=== PATIENT | male | born 1980 | race Caucasian/White ===

== ENCOUNTER 2017-01-24 21:17 | Emergency (ER) | payer BC ==
[~2017-01-24] VITALS: Ht 175.3 cm; Wt 106.6 kg
[2017-01-24 21:24] VITALS: BP_SYST 149
[2017-01-24] MEDS ORDERED: IBUPROFEN 800 MG TABLET PO ONE (23:00)
[2017-01-24 23:07] VITALS: BP_SYST 128
== END 2017-01-24 23:07 | disposition home or self-care (01) ==
LOC: SED 21:17
DX: S62.002A Unspecified fracture of navicular [scaphoid] bone of left wrist, initial encounter for closed fracture (principal); W01.0XXA Fall on same level from slipping, tripping and stumbling without subsequent striking against object, initial encounter; Y93.89 Activity, other specified; Y92.89 Other specified places as the place of occurrence of the external cause; Y99.8 Other external cause status
CPT/HCPCS: 99284

== ENCOUNTER 2018-05-06 09:36 | Emergency (ER) | payer BC, OTHER ==
[~2018-05-06] VITALS: Ht 175.3 cm; Wt 108.9 kg
[2018-05-06 09:36] VITALS: BP_SYST 163
[2018-05-06] MEDS ORDERED: NACL 0.9% 1,000 ML IV ONE (10:00)
[2018-05-06] MEDS ORDERED: ONDANSETRON HCL 4 MG/2 ML VIAL IVP ONE (10:00)
[2018-05-06] MEDS ORDERED: FIORCET PO ONE (10:00)
[2018-05-06] MEDS ORDERED: KETOROLAC TROMETHAMINE 30 MG VIAL IVP ONE (10:00)
[2018-05-06] MEDS ORDERED: SUMAtriptan SUCCINATE 6 MG/0.5 ML VIAL SUBCUT ONE (10:45)
[2018-05-06 11:41] VITALS: BP_SYST 142
== END 2018-05-06 11:40 | disposition home or self-care (01) ==
LOC: SED 09:36
DX: G43.909 Migraine, unspecified, not intractable, without status migrainosus (principal); R11.2 Nausea with vomiting, unspecified; H53.149 Visual discomfort, unspecified; I10 Essential (primary) hypertension
CPT/HCPCS: 96361; 96372; 96374; 96375; 99284; J1885; J2405; J3030; J7030

== ENCOUNTER 2021-06-26 10:16 | Inpatient (IN) | payer BC, SELFPAY ==
[~2021-06-26] VITALS: Ht 175.3 cm; Wt 105.7 kg
[2021-06-26 10:20] VITALS: BP_SYST 154
[2021-06-26] MEDS ORDERED: NS 500 ML IV ONE (10:45)
[2021-06-26] MEDS ORDERED: LORazepam 2 MG/ML VIAL IVP ONE (10:45)
[2021-06-26 11:00] LABS: BASOPHILS % (AUTO) 0.3 % (0.0-2.0); EOSINOPHILS # (AUTO) 0.1 K/uL (0.0-0.4); EOSINOPHILS % (AUTO) 0.9 % (0.0-4.0); HEMATOCRIT 48.8 % (36-54); HEMOGLOBIN 16.4 g/dL (14.0-18.0); LYMPHOCYTES # (AUTO) 2.1 K/uL (1.0-5.5); LYMPHOCYTES % (AUTO) 24.7 % (20.5-51.5); MEAN CORPUSCULAR HEMOGLOBIN 29 pg (27-31); MEAN CORPUSCULAR HGB CONC 34 % (32-36); MEAN CORPUSCULAR VOLUME 88 fL (79.0-98.0); MONOCYTES # (AUTO) 0.6 K/uL (0.0-1.0); MONOCYTES % (AUTO) 6.6 % (1.7-9.3); NEUTROPHILS # (AUTO) 5.9 K/uL (1.8-7.7); NEUTROPHILS % (AUTO) 67.5 % (40.0-70.0); PLATELET COUNT (AUTO) 264 K/uL (130-430); RED BLOOD CELL COUNT(AUTO) 5.58 MIL/uL (4.2-6.2); RED CELL DISTRIBUTION WIDTH 13.8 % (9.0-15.0); WHITE BLOOD COUNT (AUTO) 8.7 K/uL (4.8-10.8)
[2021-06-26 11:11] LABS: CALCIUM 8.3 mg/dL (8.4-11.0); CREATININE 0.9 mg/dL (0.55-1.30); POTASSIUM 4.2 mmol/L (3.5-5.1)
[2021-06-26 11:17] LABS: ALBUMIN 3.1 g/dL (3.4-4.8); TOTAL BILIRUBIN 0.3 mg/dL (0.0-1.0)
[2021-06-26] MEDS ORDERED: TRANEXAMIC ACID 1,000 MG/10 ML VIAL TP ONE (11:45)
[2021-06-26] MEDS ORDERED: TRAZ150T77 PO (12:26)
[2021-06-26] MEDS ORDERED: CLON2TAB11 PO (12:26)
[2021-06-26] MEDS ORDERED: ACETAMINOPHEN 500 MG TABLET PO ONE (12:45)
[2021-06-26] MEDS ORDERED: NITROGLYCERIN 1 INCH (GM) OINT. TP ONE (12:45)
[2021-06-26] MEDS ORDERED: NITROGLYCERIN 0.4 MG TAB.SUBL SL PRN (13:45)
[2021-06-26] MEDS ORDERED: ZOLPIDEM TARTRATE 5 MG TABLET PO PRN (13:45)
[2021-06-26] MEDS: NACL 0.9% 1,000 ML IV SCH (15:04)
[2021-06-26 15:21] VITALS: BP_SYST 151
[2021-06-26] MEDS: ACETAMINOPHEN 325 MG TABLET PO PRN (16:40)
[2021-06-26] MEDS: LORazepam 2 MG/ML VIAL IVP PRN (19:33)
[2021-06-26 20:00] VITALS: BP_SYST 164
[2021-06-26] MEDS: FUROSEMIDE 40 MG/4 ML VIAL IVP SCH (20:19)
[2021-06-26] MEDS: METOPROLOL TARTRATE 25 MG TABLET PO SCH (20:20)
[2021-06-26] MEDS: traZODone HCL 50 MG TABLET (DESYREL) PO SCH (20:20)
[2021-06-26] MEDS: MORPHINE 2 MG/ML INJ. SYRINGE IVP PRN (20:28)
[2021-06-27] VITALS: BP_SYST 150
[2021-06-27] MEDS: MORPHINE 2 MG/ML INJ. SYRINGE IVP PRN ×5 (00:33→22:32)
[2021-06-27] MEDS ORDERED: ONDANSETRON HCL 4 MG/2 ML VIAL IVP PRN (00:45)
[2021-06-27 03:06] LABS: BARBITURATE, URINE NEGATIVE (NEG <=200); CANNABINOID, URINE NEGATIVE (NEG <=50); COCAINE, URINE NEGATIVE (NEG <=150); METHAMPHETAMINES SCREEN,URINE NEGATIVE (NEG <=500); OPIATE, URINE NEGATIVE (NEG <=100); PHENCYCLIDINE SCREEN,URINE NEGATIVE (NEG <=25); URINE AMPHETAMINE NEGATIVE (NEG <=500); URINE METHADONE NEGATIVE (NEG <=200)
[2021-06-27 03:07] LABS: UR TRICYCLIC ANTIDEPRESSANTS NEGATIVE (NEG <=300); URINE OXYCODONE SCREEN NEGATIVE (NEG <=100); URINE PROPOXYPHENE SCREEN NEGATIVE (NEG <=300)
[2021-06-27 03:08] LABS: BENZODIAZEPINE, URINE POSITIVE (NEG <=150)
[2021-06-27] MEDS: NACL 0.9% 1,000 ML IV SCH (04:03)
[2021-06-27 07:02] LABS: BASOPHILS % (AUTO) 0.2 % (0.0-2.0); EOSINOPHILS % (AUTO) 0.1 % (0.0-4.0); HEMATOCRIT 45.8 % (36-54); HEMOGLOBIN 15.6 g/dL (14.0-18.0); LYMPHOCYTES # (AUTO) 1.7 K/uL (1.0-5.5); LYMPHOCYTES % (AUTO) 14.8 % (20.5-51.5); MEAN CORPUSCULAR HEMOGLOBIN 29 pg (27-31); MEAN CORPUSCULAR HGB CONC 34 % (32-36); MEAN CORPUSCULAR VOLUME 87 fL (79.0-98.0); MONOCYTES # (AUTO) 0.6 K/uL (0.0-1.0); MONOCYTES % (AUTO) 5.6 % (1.7-9.3); NEUTROPHILS # (AUTO) 9.1 K/uL (1.8-7.7); NEUTROPHILS % (AUTO) 79.3 % (40.0-70.0); PLATELET COUNT (AUTO) 279 K/uL (130-430); RED BLOOD CELL COUNT(AUTO) 5.29 MIL/uL (4.2-6.2); RED CELL DISTRIBUTION WIDTH 13.7 % (9.0-15.0); WHITE BLOOD COUNT (AUTO) 11.4 K/uL (4.8-10.8)
[2021-06-27 08:00] VITALS: BP_SYST 162
[2021-06-27] MEDS: ASPIRIN 81 MG TAB.CHEW PO SCH (08:02)
[2021-06-27] MEDS: ATORVASTATIN 20 MG TABLET PO SCH (08:02)
[2021-06-27] MEDS: METOPROLOL TARTRATE 25 MG TABLET PO SCH (08:02)
[2021-06-27] MEDS: FUROSEMIDE 40 MG/4 ML VIAL IVP SCH ×2 (08:03→20:34)
[2021-06-27] MEDS ORDERED: CLOPIDOGREL BISULFATE 75 MG TABLET PO SCH (09:00)
[2021-06-27 09:04] LABS: CALCIUM 8.5 mg/dL (8.4-11.0); CREATININE 0.96 mg/dL (0.55-1.30); POTASSIUM 3.9 mmol/L (3.5-5.1)
[2021-06-27] MEDS ORDERED: CARVEDILOL 12.5 MG TABLET (COREG) PO ONE (09:30)
[2021-06-27] MEDS ORDERED: lisinopriL 20 MG TABLET PO ONE (09:30)
[2021-06-27] MEDS ORDERED: SPIRONOLACTONE 50 MG TABLET (ALDACTONE) PO ONE (09:45)
[2021-06-27 10:51] VITALS: BP_SYST 162
[2021-06-27 12:25] VITALS: BP_SYST 141
[2021-06-27 16:33] VITALS: BP_SYST 142
[2021-06-27] MEDS ORDERED: IBUPROFEN 800 MG TABLET PO PRN (18:15)
[2021-06-27 20:00] VITALS: BP_SYST 135
[2021-06-27] MEDS: SPIRONOLACTONE 50 MG TABLET (ALDACTONE) PO SCH (20:33)
[2021-06-27] MEDS: lisinopriL 20 MG TABLET PO SCH (20:33)
[2021-06-27] MEDS: traZODone HCL 50 MG TABLET (DESYREL) PO SCH (20:34)
[2021-06-27] MEDS: CARVEDILOL 12.5 MG TABLET (COREG) PO SCH (20:34)
[2021-06-27] MEDS: LORazepam 2 MG/ML VIAL IVP PRN (20:35)
[2021-06-28 00:18] VITALS: BP_SYST 97
[2021-06-28 08:15] VITALS: BP_SYST 123
[2021-06-28] MEDS ORDERED: LIP40 PO (08:17)
[2021-06-28] MEDS ORDERED: SPIR25TA6 PO (08:17)
[2021-06-28] MEDS ORDERED: ASPI-1393 PO (08:17)
[2021-06-28] MEDS ORDERED: CARV6.2554 PO (08:17)
[2021-06-28] MEDS ORDERED: LISI20TA30 PO (08:17)
[2021-06-28 08:34] LABS: CALCIUM 8.5 mg/dL (8.4-11.0); CREATININE 1.15 mg/dL (0.55-1.30); POTASSIUM 3.8 mmol/L (3.5-5.1)
[2021-06-28] MEDS: ACETAMINOPHEN 325 MG TABLET PO PRN (08:49)
[2021-06-28] MEDS: CARVEDILOL 12.5 MG TABLET (COREG) PO SCH (08:51)
[2021-06-28] MEDS: ATORVASTATIN 20 MG TABLET PO SCH (08:52)
[2021-06-28] MEDS: ASPIRIN 81 MG TAB.CHEW PO SCH (08:52)
[2021-06-28] MEDS: FUROSEMIDE 40 MG/4 ML VIAL IVP SCH (08:54)
[2021-06-28] MEDS: SPIRONOLACTONE 50 MG TABLET (ALDACTONE) PO SCH (08:54)
[2021-06-28 09:13] VITALS: BP_SYST 123
[2021-06-28] MEDS: lisinopriL 20 MG TABLET PO SCH (10:25)
[2021-06-28 12:18] VITALS: BP_SYST 128
== END 2021-06-28 13:12 | disposition home or self-care (01) | DRG 280 ==
LOC: SED 10:16 → STU 12:11
PROVIDERS: ADMIT General Practice; ATTEND General Practice
PROC: 5A09357 Assistance with Respiratory Ventilation, Less than 24 Consecutive Hours, Continuous Positive Airway Pressure (ICD-10-PCS; principal; 2021-06-26)
DX: I11.0 Hypertensive heart disease with heart failure (principal); I21.A1 Myocardial infarction type 2; I50.43 Acute on chronic combined systolic (congestive) and diastolic (congestive) heart failure; E44.1 Mild protein-calorie malnutrition; Z20.822 Contact with and (suspected) exposure to COVID-19; F41.9 Anxiety disorder, unspecified; I42.0 Dilated cardiomyopathy; I10 Essential (primary) hypertension; G47.00 Insomnia, unspecified; Z68.34 Body mass index [BMI] 34.0-34.9, adult; Z71.51 Drug abuse counseling and surveillance of drug abuser; Z72.0 Tobacco use
CPT/HCPCS: 36415; 71045; 80048; 80053; 80061; 80307; 83036; 83605; 83735; 83880; 84484; 85025; 85379; 85651-TC; 86140; 93005; 93306; 94660; 96361; 96374; 99285; G0378; J1940; J2060; J2270; J2405; J3490

== ENCOUNTER 2023-12-22 09:06 | Inpatient (IN) | payer BC ==
[~2023-12-22] VITALS: Ht 175.3 cm; Wt 120.2 kg
[~2023-12-22 09:06] MED LIST: ASPI-1393 PO; CARV6.2554 PO; CLON2TAB11 PO; LIP40 PO; LISI20TA30 PO; SPIR25TA6 PO; TRAZ150T77 PO
[2023-12-22 09:10] VITALS: BP_SYST 142; PULSE 81; RESP 18; TEMP 96.5; O2SAT 97
[2023-12-22 09:56] LABS: BASOPHILS % (AUTO) 0.2 % (0.0-2.0); EOSINOPHILS # (AUTO) 0.1 K/uL (0.0-0.4); EOSINOPHILS % (AUTO) 0.5 % (0.0-4.0); HEMOGLOBIN 16.2 g/dL (14.0-18.0); LYMPHOCYTES # (AUTO) 1.3 K/uL (1.0-5.5); LYMPHOCYTES % (AUTO) 10.9 % (20.5-51.5); MEAN CORPUSCULAR HEMOGLOBIN 30 pg (27-31); MEAN CORPUSCULAR HGB CONC 35 % (32-36); MEAN CORPUSCULAR VOLUME 86 fL (79.0-98.0); MONOCYTES # (AUTO) 0.6 K/uL (0.0-1.0); MONOCYTES % (AUTO) 5.2 % (1.7-9.3); NEUTROPHILS # (AUTO) 9.9 K/uL (1.8-7.7); NEUTROPHILS % (AUTO) 83.2 % (40.0-70.0); PLATELET COUNT (AUTO) 228 K/uL (130-430); RED BLOOD CELL COUNT(AUTO) 5.46 MIL/uL (4.2-6.2); RED CELL DISTRIBUTION WIDTH 13.6 % (9.0-15.0); WHITE BLOOD COUNT (AUTO) 11.9 K/uL (4.8-10.8)
[2023-12-22 10:37] LABS: ANION GAP 6 (5-15); CALCIUM 9.2 mg/dL (8.4-11.0); CARBON DIOXIDE 28 mmol/L (23-29); CHLORIDE 104 mmol/L (98-107); CREATININE 1.17 mg/dL (0.55-1.30); GFR AFRICAN AMERICAN 87 mL/min (>90); GFR NON AFRICAN-AMERICAN 72 mL/min (>90); GLUCOSE 124 mg/dL (74-106); POTASSIUM 4.4 mmol/L (3.5-5.1); SODIUM SERUM 138 mmol/L (136-145); UREA NITROGEN, BLOOD 16 mg/dL (8-21)
[2023-12-22 10:44] LABS: ALANINE AMINOTRANSFERASE 29 U/L (12-78); ALBUMIN 3.8 g/dL (3.4-4.8); ASPARTATE AMINOTRANSFERASE 15 U/L (10-37); BILIRUBIN,DIRECT 0.1 mg/dL (0.0-0.3); TOTAL BILIRUBIN 0.5 mg/dL (0.0-1.0); TOTAL PROTEIN, SERUM 7.7 g/dL (6.4-8.3)
[2023-12-22] MEDS: ASPIRIN 81 MG TAB.CHEW PO ONE (10:58)
[2023-12-22] MEDS ORDERED: AMIT25TA9 PO (12:28)
[2023-12-22] MEDS ORDERED: SERT100T PO (12:30)
[2023-12-22 13:25] VITALS: BP_SYST 140; PULSE 73; RESP 18; TEMP 98.2; O2SAT 95
[2023-12-22] MEDS ORDERED: NALOXONE HCL 0.4 MG/ML AMP (NARCAN) IVP PRN ×2 (13:30)
[2023-12-22] MEDS ORDERED: POTASSIUM CHLORIDE 20 MEQ TABLET.ER PO PRN (13:30)
[2023-12-22] MEDS ORDERED: MUPIROCIN 2% TOPICAL OINTMENT 22 GM NS PRN (13:30)
[2023-12-22] MEDS ORDERED: MAGNESIUM SULFATE 50 ML IV PRN (13:30)
[2023-12-22] MEDS ORDERED: LORazepam 2 MG/ML VIAL IVP PRN (13:30)
[2023-12-22] MEDS ORDERED: MORPHINE 2 MG/ML INJ. SYRINGE IVP PRN ×2 (13:30)
[2023-12-22] MEDS ORDERED: NITROGLYCERIN 0.4 MG TAB.SUBL SL PRN (13:30)
[2023-12-22] MEDS ORDERED: ONDANSETRON HCL 4 MG/2 ML VIAL IVP PRN (13:30)
[2023-12-22] MEDS ORDERED: DOCUSATE SODIUM 100 MG CAPSULE PO PRN (13:30)
[2023-12-22] MEDS ORDERED: ZOLPIDEM TARTRATE 5 MG TABLET PO PRN (13:30)
[2023-12-22] MEDS ORDERED: ACETAMINOPHEN 500 MG TABLET PO PRN ×3 (13:45)
[2023-12-22 14:07] LABS: BARBITURATE, URINE NEGATIVE (NEG <=200); BENZODIAZEPINE, URINE NEGATIVE (NEG <=150); CANNABINOID, URINE POSITIVE (NEG <=50); COCAINE, URINE NEGATIVE (NEG <=150); METHAMPHETAMINES SCREEN,URINE NEGATIVE (NEG <=500); OPIATE, URINE NEGATIVE (NEG <=100); PHENCYCLIDINE SCREEN,URINE NEGATIVE (NEG <=25); UR TRICYCLIC ANTIDEPRESSANTS NEGATIVE (NEG <=300); URINE AMPHETAMINE NEGATIVE (NEG <=500); URINE METHADONE NEGATIVE (NEG <=200); URINE OXYCODONE SCREEN NEGATIVE (NEG <=100)
[2023-12-22 18:25] VITALS: BP_SYST 141; PULSE 69; RESP 18; TEMP 97.9; O2SAT 99
[2023-12-22] MEDS ORDERED: PANTOPRAZOLE SODIUM 40 MG TAB PO ONE (18:30)
[2023-12-22 19:20] VITALS: BP_SYST 147; PULSE 71; RESP 19; TEMP 97.6; O2SAT 97
[2023-12-22 20:00] VITALS: O2SAT 97
[2023-12-22] MEDS: AMITRIPTYLINE HCL 25 MG TABLET (ELAVIL) PO SCH (21:26)
[2023-12-22] MEDS: ENOXAPARIN SODIUM 40 MG/0.4 ML SYRINGE SUBCUT SCH (21:27)
[2023-12-23] VITALS: BP_SYST 133; PULSE 69; RESP 16; TEMP 98.4; O2SAT 98
[2023-12-23 04:05] LABS: BASOPHILS % (AUTO) 0.2 % (0.0-2.0); EOSINOPHILS # (AUTO) 0.1 K/uL (0.0-0.4); EOSINOPHILS % (AUTO) 0.8 % (0.0-4.0); HEMOGLOBIN 15.7 g/dL (14.0-18.0); LYMPHOCYTES # (AUTO) 2.3 K/uL (1.0-5.5); LYMPHOCYTES % (AUTO) 26.1 % (20.5-51.5); MEAN CORPUSCULAR HEMOGLOBIN 30 pg (27-31); MEAN CORPUSCULAR HGB CONC 35 % (32-36); MEAN CORPUSCULAR VOLUME 86 fL (79.0-98.0); MONOCYTES # (AUTO) 0.7 K/uL (0.0-1.0); MONOCYTES % (AUTO) 7.7 % (1.7-9.3); NEUTROPHILS # (AUTO) 5.8 K/uL (1.8-7.7); NEUTROPHILS % (AUTO) 65.2 % (40.0-70.0); PLATELET COUNT (AUTO) 248 K/uL (130-430); RED BLOOD CELL COUNT(AUTO) 5.21 MIL/uL (4.2-6.2); RED CELL DISTRIBUTION WIDTH 13.8 % (9.0-15.0); WHITE BLOOD COUNT (AUTO) 8.9 K/uL (4.8-10.8)
[2023-12-23 04:53] LABS: ALBUMIN 3.6 g/dL (3.4-4.8); CALCIUM 8.7 mg/dL (8.4-11.0); CREATININE 1.09 mg/dL (0.55-1.30); POTASSIUM 3.7 mmol/L (3.5-5.1); TOTAL BILIRUBIN 0.8 mg/dL (0.0-1.0); TOTAL PROTEIN, SERUM 7.7 g/dL (6.4-8.3)
[2023-12-23 07:30] VITALS: BP_SYST 135; PULSE 70; RESP 18; TEMP 97.4; O2SAT 100
[2023-12-23 08:10] VITALS: BP_SYST 135; PULSE 70; RESP 18; TEMP 97.4; O2SAT 94
[2023-12-23] MEDS ORDERED: SERTRALINE HCL 50 MG TABLET PO SCH (09:00)
[2023-12-23] MEDS ORDERED: PANTOPRAZOLE SODIUM 40 MG TAB PO SCH (09:00)
[2023-12-23] MEDS ORDERED: CLON1TAB12 PO (12:13)
[2023-12-23] MEDS ORDERED: TRAZ300T2 PO (12:13)
[2023-12-24] MEDS ORDERED: NEU300 PO (10:31)
== END 2023-12-23 08:25 | disposition left against medical advice (07) | DRG 392 ==
LOC: SED 09:06 → SMU 12:23 → STU 13:20
PROVIDERS: ADMIT General Practice; ATTEND General Practice
DX: K29.70 Gastritis, unspecified, without bleeding (principal); I42.9 Cardiomyopathy, unspecified; F32.A Depression, unspecified; F41.9 Anxiety disorder, unspecified; I11.0 Hypertensive heart disease with heart failure; I50.9 Heart failure, unspecified; Z82.0 Family history of epilepsy and other diseases of the nervous system; Z79.899 Other long term (current) drug therapy; Z63.4 Disappearance and death of family member
CPT/HCPCS: 36415; 71045; 80048; 80053; 80061; 80076; 80307; 83037; 83735; 83880; 84443; 84484; 85025; 85379; 93005; 93306; G0378; J1650